=== PATIENT | female | born 1980 | race Caucasian/White ===

== ENCOUNTER 2016-07-28 18:31 | Emergency (ER) | payer BC | END 2016-07-28 19:26 | disposition left against medical advice (07) | LOC: ER1 18:31 | DX: Z53.21 Procedure and treatment not carried out due to patient leaving prior to being seen by health care provider (principal) ==

== ENCOUNTER → 2016-09-15 | Outpatient (CLI) | payer BC | LOC: US 12:30 | DX: N28.1 Cyst of kidney, acquired (principal) ==

== ENCOUNTER → 2021-08-27 | Outpatient (CLI) | payer BC | LOC: MRI 13:22 | DX: G43.709 Chronic migraine without aura, not intractable, without status migrainosus (principal) | CPT/HCPCS: 70553; A9577 ==